=== PATIENT | male | born 1975 | race African-American/Black ===

== ENCOUNTER 2021-12-18 23:36 | Emergency (ER) | payer BC, SELFPAY ==
--- NOTE | ~2021-12-18 | XR_ITS ---
EXAMINATION: XR chest 2V DATE: 12/19/2021 00:08 INDICATION: Chest pain. Shortness of breath. TECHNIQUE: Frontal and lateral views of the chest were obtained. COMPARISON: None. FINDINGS: The chest demonstrates clear lungs without pneumonia, pleural effusion, or pneumothorax. Th e heart size is normal. There is mild chronic anterior wedging of 2 midthoracic vertebral bodies. IMPRESSION: 1. No acute cardiopulmonary disease. Reviewed, dictated and finalized at location A.
--- NOTE | 2021-12-18 23:37 | ECG_ITS ---
Measurements Intervals Cardinal Rate: 61 P: 20 GA: 157 QRS: 1 QRSD: 106 T: -7 QT: 398 QTc: 402 Interpretive Statements SINUS RHYTHM POSSIBLE LEFT VENTRICULAR HYPERTROPHY [VOLTAGE CRITERIA PLUS LAE OR QRS WIDENING] BORDERLINE ECG NO PREVIOUS ECG AVAILABLE FOR COMPARISON Electronically Signed On 12-19-2021 7:26:48 CDT by Jose Martinez M.D.
--- NOTE | 2021-12-18 23:38 | PC.NURSE ---
pct offered pt wheel chair, pt refused. pt ambulatory with steady gait to room 2
[2021-12-18 23:39] VITALS: BP 151/113; PULSE 68; RESP 18; O2SAT 100
--- NOTE | 2021-12-18 23:44 | ED.CHESTPAIN ---
HPI - Chest Pain General Chief Complaint: Chest Pain Stated Complaint: chest pain Time Seen by Provider: 12/18/21 23:42 History of Present Illness HPI narrative: 46-year-old male who states that for the last 3 days, he has been having some chest pressure that seems to radiate to his right arm, no nausea or vomiting, no diaphoresis, it happens at rest as often as it does while he is walking or standing, states that he has had a slight cough last few days and not seriously, no fevers no chills. No lower extremity pain or swelling. Related Data Allergies Allergy/AdvReac Type Severity Reaction Status Date / Time aspirin Allergy Anaphylaxis Verified 12/18/21 23:43 Penicillins Allergy Anaphylaxis Verified 12/18/21 23:43 Review of Systems Review of Systems: CONST: No fever. HEENT: No sore throat C/V: chest pain RESP: cough GI: No nausea or vomiting : No dysuria. M/S: No joint pain. SKIN: No rash. NEURO: [No headache or focal numbness or weakness] PSYCH: [No depression] [facility] Past Medical History Medical History (Updated 12/19/21 @ 01:20 by Jen Siddiqui MD) No active medical problems Social History Social History (Updated 12/19/21 @ 01:20 by Jen Siddiqui MD) Smoking status: Never smoker Exam Narrative: EXAMINATION OF ORGAN SYSTEMS/BODY AREAS: Constitutional: Vital signs per nursing GENERAL:[No acute distress, non-toxic appearing.] HEAD: Normal with no signs of head trauma. EYES: EOMI, conjunctiva normal ENT: Hearing grossly intact LUNGS: Nonlabored breathing. Clear to auscultation bilaterally HEART: [Regular rate and rhythm]. Chest wall tenderness to palpation. ABD: [Soft], [nontender to palpation] EXT: Normal range of motion SKIN: [No rashes or lesions.] NEURO: [Alert and oriented x 3. No gross focal sensory or strength deficits.] PSYCH: Normal affect Course Vital Signs Vital signs: Vital Signs Pulse Rate 68 12/18/21 23:39 Respiratory Rate 18 12/18/21 23:39 Blood Pressure 151/113 H 12/18/21 23:39 Pulse Oximetry 100 12/18/21 23:39 Oxygen Delivery Room Air 12/18/21 23:39 Pulse Rate 64 12/19/21 01:03 Respiratory Rate 18 12/19/21 01:03 Blood Pressure 133/92 H 12/19/21 01:03 Pulse Oximetry 99 12/19/21 01:03 Oxygen Delivery Room Air 12/18/21 23:53 MDM - Chest Pain MDM Narrative Medical decision making narrative: ED COURSE AND MEDICAL DECISION MAKIN-year-old male presenting with chest pain. EKG done in triage negative for acute ischemic changes. Cardiac workup is initiated. HEART score is 1 with no acute ischemic changes on EKG and negative troponin making ACS unlikely. Wells low risk with negative PERC making PE unlikely. Presentation not consistent with dissection or aneurysm without radiation of pain or pulse deficits. CXR negative for mediastinal widening. No abdominal pain or signs of sepsis that would be concerning for esophageal perforation or mediastinitis. I did perform a bedside ultrasound and did not note any pericardial effusion/tamponade. On repeat evaluation just prior to discharge, the patient is no acute distress. I had a long discussion with the patient and with shared decision making, [he] is comfortable with outpatient management. [He] was given clear return instructions by myself in person as well as on discharge paperwork. Procedures: Pulse oximetry interpretation - not hypoxic. EKG interpretation. Review of medical records. Lab Data Result diagrams: 12/18/21 23:51 12/18/21 23:51 Labs: Lab Results 12/18/21 12/18/21 12/18/21 Range/Units 23:51 23:51 23:51 WBC 6.0 (4.5-10.0) K/mm3 RBC 4.46 L (4.6-6.20) M/mm3 Hgb 13.7 L (14.0-18.0) g/dL Hct 41.8 L (42.0-52.0) % MCV 93.7 (80-100) fl MCH 30.7 (26-34) pg MCHC 32.8 (32-36) g/dl RDW 12.9 (11.5-14.5) % Plt Count 240 (150-375) k/mm3 MPV 10.2 (7.4-10.4) fl Immature Gran % (Auto) 0.2 (0-0.5) %
[2021-12-18 23:53] VITALS: PULSE 72; O2SAT 100
[2021-12-18 23:57] LABS: Basophils Percent Auto 0.5 % (0.2-1.2); Eosinophils Absolute Auto 0.2 K/mm3 (0-0.3); Eosinophils Percent Auto 3.3 % (0-4.4); Hematocrit 41.8 % (42.0-52.0); Hemoglobin 13.7 g/dL (14.0-18.0); Immature Granulocyte Absolute 0.01 K/mm3 (0.00-0.031); Immature Granulocyte Percent A 0.2 % (0-0.5); Lymphocytes Percent Auto 44.9 % (18.3-44.2); Mean Corpuscular HGB Conc 32.8 g/dl (32-36); Mean Corpuscular Hemoglobin 30.7 pg (26-34); Mean Corpuscular Volume 93.7 fl (80-100); Mean Platelet Volume 10.2 fl (7.4-10.4); Monocytes Absolute Auto 0.7 K/mm3 (0.1-0.6); Monocytes Percent Auto 12.1 % (2.6-8.5); Neutrophils Absolute Auto 2.3 K/mm3 (1.3-6.7); Platelet Count Result 240 k/mm3 (150-375); Red Blood Count 4.46 M/mm3 (4.6-6.20); Red Cell Distribution Width 12.9 % (11.5-14.5)
[2021-12-19 00:11] LABS: Alanine Aminotransferase 47 U/L (6-50); Albumin Level 4.8 g/dL (3.5-5.1); Alkaline Phosphatase 90 U/L (38-126); Anion Gap 5 mmol/L (8-16); Aspartate Amino Transferase 41 U/L (17-59); Bilirubin,Total 0.7 mg/dL (0.2-1.3); Blood Urea Nitrogen 22 mg/dL (9-20); Carbon Dioxide 28 mmol/L (22-30); Chloride 104 mmol/L (98-107); Estimated CRCL calculation 89 ml/min; Estimated Glomerular Filt Rate > 60; Glucose 87 mg/dL (65-110); Lipase 65 U/L (23-300); Potassium 4.4 mmol/L (3.4-5.0); Sodium 137 mmol/L (137-145)
[2021-12-19 00:12] LABS: INR 1.4; Prothrombin Time 16.5 Seconds (11.1-14.7)
[2021-12-19 00:13] LABS: Partial Thromboplastin Time 33.3 SECONDS (22.3-36.8)
[2021-12-19 00:19] LABS: Troponin I < 0.012 ng/mL (0.000-0.034)
[2021-12-19] MEDS: KETOROLAC 15 MG/ML VIAL (*BKC) IV PUSH (00:38)
[2021-12-19 01:03] VITALS: BP 133/92; PULSE 64; RESP 18; O2SAT 99
[2021-12-19 01:35] VITALS: BP 134/96; PULSE 65; RESP 18; O2SAT 99
== END 2021-12-19 01:37 | disposition home or self-care (01) ==
PROVIDERS: Emergency Medicine; Emergency Provider Emergency Medicine
DX: R07.89 Other chest pain (principal); R94.31 Abnormal electrocardiogram [ECG] [EKG]
CPT/HCPCS: 36415; 71046; 80053; 83690; 84484; 85025; 85610; 85730; 93005; 96374; 99284; J1885

== ENCOUNTER 2022-08-19 00:56 | Emergency (ER) | payer BC, SELFPAY ==
--- NOTE | ~2022-08-19 | XR_ITS ---
Left Shoulder Technique: AP and scapular Y views were obtained. Clinical History: Pain Findings: No fracture or dislocation is seen. Osseous alignment is anatomic. The glenohumeral and acr omioclavicular joint spaces are preserved. Soft tissues are unremarkable. Impression: Unremarkable left shoulder radiographs. Reviewed, dictated and finalized at [facility]. COORDINATOR Impression: Unremarkable left shoulder radiographs.
[2022-08-19 00:57] VITALS: PULSE 85; RESP 16; TEMP 36.3; O2SAT 100
--- NOTE | 2022-08-19 02:25 | ED.GENADULT ---
HPI - General Adult General Chief complaint: Extremity Injury, Upper Stated complaint: L shoulder pain Time Seen by Provider: 08/19/22 01:08 History of Present Illness HPI narrative: 47-year-old male presented emerged department for evaluation of left shoulder pain. Patient is a shoulder pain has been bothering for the last few days and started when he woke up. Patient denies any specific incident falls or injuries. Patient describes shoulder pain and limited range of motion of the left shoulder. Patient states he did have some tingling of his left hand yesterday. Related Data Allergies Allergy/AdvReac Type Severity Reaction Status Date / Time aspirin Allergy Anaphylaxis Verified 12/18/21 23:43 Penicillins Allergy Anaphylaxis Verified 12/18/21 23:43 Review of Systems Review of Systems: CONSTITUTIONAL: Denies fever, chills, or sweats. EYES: Denies visual changes, redness, or discharge. ENT: Denies rhinorrhea, congestion, sore throat, or otalgia. CARDIOVASCULAR: Denies chest pain, palpitations, or edema. RESPIRATORY: Denies cough or dyspnea. GASTROINTESTINAL: Denies abdominal pain, nausea, vomiting, or diarrhea. GENITOURINARY: Denies dysuria or hematuria. SKIN: Denies rash or itching. MUSCULOSKELETAL: See HPI NEUROLOGIC: Denies headache, numbness, or weakness. [facility] Past Medical History Medical History (Updated 08/19/22 @ 02:23 by Abraham Hayes MD) No active medical problems Social History Social History (Updated 12/19/21 @ 01:20 by Jen Siddiqui MD) Smoking status: Never smoker Exam Narrative: APPEARANCE: Well appearing, no pain, no distress, well-nourished. HEAD: normocephalic, atraumatic. EYES: PERRLA/EOMI, conjunctivae clear. NOSE: Normal no drainage NECK: Supple. No adenopathy, no masses. RESPIRATORY: Airway patent, respirations nonlabored. Clear to auscultation bilaterally, no rales, rhonchi, wheezing. CARDIOVASCULAR: Regular rate and rhythm without murmurs rubs or gallops. ABDOMINAL: Soft, nontender, nondistended, normal bowel sounds MUSCULOSKELETAL: Point tenderness to palpation on the anterior left shoulder. No deformity. Decreased active range of motion but greater passive range of motion. NEURO: Alert. Cranial nerves II through XII intact. Grossly intact SKIN: Warm, dry. Normal Color Course Course Emergency Course: Differential diagnosis for patient's symptoms include but are not limited to rotator cuff strain, shoulder dislocation, shoulder fracture, pinched nerve. X-ray shows no acute fracture or dislocation. Patient's symptoms are consistent with a rotator cuff injury. Patient was provided medications for pain control and protopop sling for comfort. Patient was encouraged have close follow-up with his primary care physician and along with orthopedics. Patient was comfortable with the plan for discharge and close follow-up. Vital Signs Vital signs: Vital Signs Temperature 97.3 F L 08/19/22 00:57 Pulse Rate 85 08/19/22 00:57 Respiratory Rate 16 08/19/22 00:57 Pulse Oximetry 100 08/19/22 00:57 Temperature 97.3 F L 08/19/22 00:57 Pulse Rate 85 08/19/22 00:57 Respiratory Rate 16 08/19/22 00:57 Pulse Oximetry 100 08/19/22 00:57 Medical Decision Making Vital Signs Vital Signs: Vital Signs Temperature 97.3 F L 08/19/22 00:57 Pulse Rate 85 08/19/22 00:57 Respiratory Rate 16 08/19/22 00:57 Pulse Oximetry 100 08/19/22 00:57 Temperature 97.3 F L 08/19/22 00:57 Pulse Rate 85 08/19/22 00:57 Respiratory Rate 16 08/19/22 00:57 Pulse Oximetry 100 08/19/22 00:57 Imaging Data My impression: Left shoulder x-ray: No acute fracture or dislocation. Discharge Plan Discharge Clinical Impression: Acute pain of left shoulder Patient Disposition: Home, Self-Care Condition: Stable Instructions: Antibiotic Form, How to Use a Sling (ED) Additional Instructions: Ibuprofen for pain control. Flexeril as needed for muscl
[2022-08-19] MEDS: IBUPROFEN 600 MG TABLET (03:10)
== END 2022-08-19 03:10 | disposition home or self-care (01) ==
PROVIDERS: Emergency Provider Emergency Medicine
DX: M25.512 Pain in left shoulder (principal)
CPT/HCPCS: 73030; 99283; A4565; A9270

== ENCOUNTER 2023-04-18 11:41 | Emergency (ER) | payer BC, SELFPAY ==
[2023-04-18 11:57] VITALS: BP 135/108; PULSE 103; RESP 16; TEMP 36.5; O2SAT 99
--- NOTE | 2023-04-18 12:22 | ED.WOUNDLAC ---
HPI - Wound/Laceration General Chief Complaint: Wound/Laceration Stated Complaint: SCALP LACERATION Time Seen by Provider: 04/18/23 12:07 Source: patient and RN notes reviewed Mode of arrival: ambulatory Limitations: no limitations History of Present Illness HPI narrative: Patient presents today with a laceration to the crown of his scalp as well as to the right forehead. He was getting a box of clover jar hours from a high shelf when the box fell and glass cut him on the top of his head and his forehead around 11 30 this morning. He denies loss of consciousness, nausea vomiting, vision changes, headache, neck pain. He is currently pain-free. He is up-to-date on his tetanus vaccine. Related Data Home Medications Medication Instructions Recorded Confirmed losartan 50 mg tablet 50 mg PO DAILY 04/18/23 04/18/23 Allergies Allergy/AdvReac Type Severity Reaction Status Date / Time aspirin Allergy Anaphylaxis Verified 04/18/23 11:53 Penicillins Allergy Anaphylaxis Verified 04/18/23 11:53 Review of Systems Review of Systems: CONSTITUTIONAL: Denies body aches, fever, chills, or sweats. EYES: Denies visual changes, redness, or discharge. ENT: Denies rhinorrhea, congestion, sore throat, or otalgia. CARDIOVASCULAR: Denies chest pain, palpitations, or edema. RESPIRATORY: Denies cough or dyspnea. GASTROINTESTINAL: Denies abdominal pain, nausea, vomiting, or diarrhea. GENITOURINARY: Denies dysuria or hematuria. SKIN: + scalp and forehead lacerations MUSCULOSKELETAL: Denies back pain, joint pain, or myalgia. NEUROLOGIC: Denies headache, numbness, tingling, or weakness. PSYCH: Denies depression or anxiety. [facility] Past Medical History Medical History No active medical problems Social History Social History Smoking status: Never smoker Comments At time of signature, I have reviewed and agree with nursing past medical, surgical, social and family history unless otherwise noted. Please see nursing chart for further information. There is no relevant family history pertinent to the presenting complaint Exam Narrative: GENERAL: Well-appearing, well-nourished, and in no acute distress. HEAD: Normocephalic, atraumatic. EYES: EOMI. No redness or drainage. Conjunctivae normal. ENT: Mucous membranes pink and moist. NECK: Normal AROM. CHEST: No respiratory distress. EXTREMITIES: Normal range of motion. No edema. SKIN: Warm, dry, no rash. Capillary refill normal. Normal skin turgor. 4 cm partial-thickness linear laceration to the crown of the scalp. 2 cm full-thickness flap laceration to the right forehead. NEURO: No focal deficits. Alert and oriented x3. Gait steady. PSYCH: Normal affect. No signs of depression or anxiety. Course Course Level of Care: Express Care Visit Vital Signs Vital signs: Vital Signs Temperature 97.7 F 04/18/23 11:57 Pulse Rate 103 H 04/18/23 11:57 Respiratory Rate 16 04/18/23 11:57 Blood Pressure 135/108 H 04/18/23 11:57 Pulse Oximetry 99 04/18/23 11:57 Temperature 97.7 F 04/18/23 11:57 Pulse Rate 103 H 04/18/23 11:57 Respiratory Rate 16 04/18/23 11:57 Blood Pressure 135/108 H 04/18/23 11:57 Pulse Oximetry 99 04/18/23 11:57 Reviewed. Pt has been instructed to follow up with his PCP regarding his elevated blood pressure today. Procedures Laceration Laceration 1: Date: 04/18/23 Time: 12:37 Site: scalp Size (cm): 4 Description: linear Depth: simple, single layer Local Anesthetic: none Pre-repair: wound explored ====== Skin Level ====== Skin layer closed with: [email or web address] Number of sutures: 5 ====== Subcutaneous Layer ====== ====== Muscle Layer ====== ====== Tendon Layer ====== Laceration 2: Date: 04/18/23 Time: 12:38
== END 2023-04-18 12:44 | disposition home or self-care (01) ==
PROVIDERS: Emergency Provider Nurse Practitioner; PCP Family Medicine
DX: S01.81XA Laceration without foreign body of other part of head, initial encounter (principal); S01.01XA Laceration without foreign body of scalp, initial encounter; W25.XXXA Contact with sharp glass, initial encounter
CPT/HCPCS: 12011; 12002; 99212; G0463